=== PATIENT | male | born 1950 | race Caucasian/White ===

== ENCOUNTER 2016-12-29 07:06 | Outpatient (CLI) | payer MEDICARE, BC ==
[2016-12-29] MEDS ORDERED: IOPAMIDOL-300 100 ML VIAL IVP ONE (09:07)
--- NOTE | 2016-12-29 13:07 | CT Report ---
CT ABDOMEN AND PELVIS: 12/29/2016 CLINICAL HISTORY: Left flank pain, hematuria. TECHNIQUE: Axial images were obtained from the domes of the diaphragm through the pubic symphysis following the administration of contrast. 100 cc isovue. In accordance with CT protocol optimization, one or more of the following dose reduction techniques were utilized for this exam: automated exposure control, adjustment of mA and/or KV based on patient size, or use of iterative reconstructive technique. FINDINGS: The visualized lung bases are grossly clear. Small hiatal hernia is noted. The liver, pancreas, spleen, and adrenal glands are unremarkable. The kidneys are symmetric. There is no hydronephrosis nor hydroureter. No renal nor ureteral calculi are confirmed. Specific attention to the left side is normal. There is moderate retained stool in the colon. There are no dilated segments of small nor large bowel. Numerous diverticula are more concentrated in the descending colon/sigmoid distribution. There is no convincing evidence for active diverticulitis. The bladder and distal ureters are grossly normal. Small fat-containing inguinal hernias are symmetric. Atherosclerotic calcifications are incidental in the aorta. Few shotty retroperitoneal lymph nodes are noted with a short axis diameter measuring up to 6 mm. Degenerative changes exist in the lumbar spine; maximal at L5-S1. IMPRESSION: 1. NO OBSTRUCTIVE UROPATHY. NO CT EXPLANATION FOR LEFT FLANK PAIN/HEMATURIA. 2. MODERATE DIVERTICULOSIS IN THE DESCENDING/SIGMOID COLON. NO CHANGES TO SUGGEST DIVERTICULITIS. REFERENCE ADDITIONAL COMMENTS ABOVE. JOB #: [id number] EXT JOB #: [id number] [facility]Ale
== END 2016-12-29 07:07 | disposition home or self-care (01) ==
LOC: DI 07:06
PROVIDERS: ATTEND Family Medicine
DX: R10.9 Unspecified abdominal pain (principal); R31.9 Hematuria, unspecified; K57.30 Diverticulosis of large intestine without perforation or abscess without bleeding
CPT/HCPCS: 74177; Q9967

== ENCOUNTER 2017-11-29 08:59 | Outpatient (CLI) | payer MEDICARE, BC ==
--- NOTE | 2017-11-29 12:30 | XRAY Report ---
Procedure Date: 11/29/2017 Accession Number: [id number] / [id number] Procedure: XRS - Knee 4 View BILAT CPT Code: FULL RESULT: EXAM: Knee 4 View BILAT DATE: 11/29/2017 9:43 AM CLINICAL HISTORY: NEW BILAT KNEE PAIN X 3 MO COMPARISON: None. TECHNIQUE: 3 views each. FINDINGS: RIGHT KNEE: Bones: Normal. No fractures or bone lesions. Joints: Normal. No effusion. No subluxations. Mild tricompartmental osteoarthrosis most pronounced in the medial femorotibial compartment. Soft Tissues: Normal. No soft tissue swelling. LEFT KNEE: Bones: Normal. No fractures or bone lesions. Joints: Normal. No effusion. No subluxations. Mild tricompartmental osteoarthrosis most pronounced in the medial femorotibial compartment. Soft Tissues: Normal. No soft tissue swelling. IMPRESSION: Mild bilateral osteoarthrosis, otherwise normal bilateral knee radiography. [facility]
== END 2017-11-29 09:00 | disposition home or self-care (01) ==
LOC: DI.S 08:59
PROVIDERS: ATTEND Registered Nurse
DX: M17.0 Bilateral primary osteoarthritis of knee (principal)

== ENCOUNTER 2019-04-21 12:55 | Outpatient (CLI) | payer MEDICARE, BC ==
--- NOTE | 2019-04-22 16:35 | XRAY Report ---
Reason: ACUTE BRONCHITIS Procedure Date: 04/21/2019 Accession Number: [id number] / [id number] Procedure: XRS - Chest 2 View X-Ray CPT Code: 67164 Final Report FULL RESULT: EXAM: CHEST RADIOGRAPHY EXAM DATE: 04/21/2019 01:13 PM. CLINICAL HISTORY: ACUTE BRONCHITIS. COMPARISON: 10/12/2013 12:02 PM. TECHNIQUE: 2 views. FINDINGS: Lungs/Pleura: Posterior lower lobe infiltrate, probably on the left. No pleural effusion seen. No pneumothorax. Mediastinum: Heart and mediastinal contours are unremarkable. Other: Pectus excavatum. IMPRESSION: 1. Left lower lobe infiltrate consistent with pneumonia. [facility]
== END 2019-04-21 12:56 | disposition home or self-care (01) ==
LOC: DI.S 12:55
PROVIDERS: ATTEND Nurse Practitioner Family
DX: R91.8 Other nonspecific abnormal finding of lung field (principal)
CPT/HCPCS: 71046

== ENCOUNTER 2019-08-31 13:14 | Outpatient (CLI) | payer MEDICARE, BC ==
--- NOTE | 2019-08-31 14:56 | Ultrasound Report ---
Reason: LEFT LLQ PAIN Procedure Date: 08/31/2019 Accession Number: [id number] / [id number] Procedure: US - Pelvic Limited or F/U CPT Code: Final Report FULL RESULT: EXAM: LIMITED ABDOMINAL/PELVIC ULTRASOUND EXAM DATE: 08/31/2019 02:10 PM. CLINICAL HISTORY: Left lower quadrant pain. COMPARISON: ABDOMEN/PELVIS W/ 12/29/2016 8:03 AM. TECHNIQUE: Real-time scanning was performed of the right lower quadrant with static images obtained. FINDINGS: Sonography performed at the area of concern as indicated by the patient at the left inguinal area. There is a rounded hypoechoic density extending into the left inguinal canal, measuring 3.3 x 1.5 x 2.1 cm. The neck is measured at 0.9 x 0.8 cm. This is located lateral to the inferior epigastric artery. No peristalsis is seen. No motion was seen with Valsalva. IMPRESSION: Findings consistent with nonreducible hernia containing fat versus mass. [facility]
== END 2019-08-31 13:15 | disposition home or self-care (01) ==
LOC: DI 13:14
PROVIDERS: ATTEND Nurse Practitioner Family
DX: R19.04 Left lower quadrant abdominal swelling, mass and lump (principal)
CPT/HCPCS: 76857

== ENCOUNTER 2019-11-07 11:03 | Outpatient (CLI) | payer MEDICARE, BC | END 2019-11-07 11:04 | disposition home or self-care (01) | LOC: LAB 11:03 | PROVIDERS: ATTEND Surgery | DX: Z01.812 Encounter for preprocedural laboratory examination (principal); Z20.828 Contact with and (suspected) exposure to other viral communicable diseases; R59.1 Generalized enlarged lymph nodes | CPT/HCPCS: 81599 ==

== ENCOUNTER 2019-11-10 08:37 | Day surgery (SDC) | payer MEDICARE, BC ==
[2019-11-10] MEDS ORDERED: KETAMINE 500 MG/10 ML VIAL IVP ONE (08:38)
[2019-11-10] MEDS ORDERED: PROPOFOL 200 MG/20 ML VIAL IVP ONE (08:38)
[2019-11-10] MEDS ORDERED: fentaNYL 100 MCG/2 ML VIAL IVP ONE (08:38)
[2019-11-10] MEDS ORDERED: LIDOCAINE-MPF 2% 5 ML VIAL IM ONE (08:38)
[2019-11-10] MEDS ORDERED: LACTATED RINGERS 1,000 ML IV ONE (08:52)
--- NOTE | 2019-11-10 10:08 | ANESTHESIA ---
Pre-Anesthesia VS, & Labs - Diagnosis lymphadenopathy - Procedure lymph node excision left groin Vital Signs: Temp Pulse Resp BP Pulse Ox 36.6 C 64 12 150/76 H 100 11/10/19 08:52 11/10/19 08:52 11/10/19 08:52 11/10/19 08:52 11/10/19 08:52 Height 5 ft 7 in Weight (kg) 63.5 kg - NPO >8 hours - Lab Results Lab results reviewed: Yes Home Medications and Allergies Home Medications: Ambulatory Orders No Known Home Medications 11/02/19 No Known Home Medications 11/02/19 Allergies/Adverse Reactions: Allergies Allergy/AdvReac Type Severity Reaction Status Date / Time No Known Drug Allergies Allergy Verified 11/02/19 14:02 Anes History & Medical History - Anesthetic History Anesthesia Complications: reports: No previous complications Family history of Anesthesia Complications: Denies Family history of Malignant Hyperthermia: Denies - Medical History Cardiovascular: reports: None Pulmonary: reports: None Gastrointestinal: reports: None Urinary: reports: None Musculoskeletal: reports: None Endocrine/Autoimmune: reports: None Skin: reports: None Smoking Status: Never smoker Psychosocial: reports: Alcohol (2-3 drinks/day) - Surgical History General: Colonoscopy Orthopedic: Hip replacement Exam General: Alert, Oriented x3, Cooperative Dental: Dentures full Upper, Dentures full Lower Mouth Opening: Greater than 4 Fingerbreadths Neck Mobility: Normal Mallampati classification: I Thyromental Distance: 4-6 cm Respiratory: Lungs clear Cardiovascular: Regular rate Plan Anesthesia Type: General, MAC Consent for Procedure(s) Verified and Reviewed: Yes Code Status: Attempt Resuscitation ASA classification: 1-Healthy patient Is this case an emergency?: No
[2019-11-10] MEDS ORDERED: LIDOCAINE-MPF 1% 30 ML VIAL ONE (11:08)
[2019-11-10] MEDS: LIDOCAINE 1%-EPI 1:100000 20 ML MDV ONE ×2 (11:53→12:03)
[2019-11-10] MEDS: BUPIVACAINE 0.25% PF 30 ML VIAL ONE ×2 (11:53→12:03)
[2019-11-10] MEDS ORDERED: HYDROcod/ACETAM 5/325 MG TABLET PO PRN (13:01)
[2019-11-10] MEDS ORDERED: HYDROcod/ACETAM 10 MG/325 MG TABLET PO PRN (13:01)
[2019-11-10 13:33] VITALS: BP 120/59
[2019-11-10] MEDS ORDERED: LACTATED RINGERS 1,000 ML IV SCH (14:00)
--- NOTE | 2019-11-10 15:01 | OPERATIVE REPORT ---
DATE OF SERVICE: 11/10/2019 Physician: Wolf Conte MD PREOPERATIVE DIAGNOSIS: Bilateral inguinal lymphadenopathy. POSTOPERATIVE DIAGNOSIS: Bilateral inguinal lymphadenopathy. PROCEDURE: Excisional biopsy, left inguinal node. SURGEON: Carlos Conte MD WRAPPER CASHIER: None. ANESTHESIA: Monitored anesthesia care, IV sedation and local anesthesia. COMPLICATIONS: None. SPECIMEN: Lymph node sent fresh for pathology. ESTIMATED BLOOD LOSS: None. DRAINS: None. INDICATIONS FOR PROCEDURE: Patient is a 77-year-old healthy gentleman who recently noticed a tender left inguinal lymph node. He was followed for a few weeks. He has developed a progressive bilateral inguinal lymphadenopathy, and presents for excisional biopsy. Risks discussed, alternatives discuss ed. All questions answered and consent obtained. DESCRIPTION OF PROCEDURE: Patient was properly identified, brought to the operating room and placed in supine position. Monitored anesthesia care was given. He was prepped and draped in a sterile fas hion. Antibiotics were not given. Local anesthetic with lidocaine and Marcaine was given over the m ost prominent left inguinal lymph node. A 4 cm incision was made in the direction of [place]'s lines. Dissection proceeded with cutting current, followed by sharp dissection down to the lymph node. He had a matted lymph nodes with significant scarring. The most dominant lymph node was carefully daisy brigida with cautery. A single small Hemoclip followed by a 2-0 Vicryl tie. The lymph node was removed and sent fresh for pathology. Hemostasis was assured. Subcutaneous tissue was closed in layers with 2-0 Vicryl, followed by buried interrupted 3-0 Vicryl suture. Skin was closed with a running 4-0 Mo nocryl subcuticular suture. Steri-Strips and dressing were applied. He tolerated the procedure well . TD: 11/10/2019 13:14
== END 2019-11-10 08:38 | disposition home or self-care (01) ==
LOC: SDS 08:37
PROVIDERS: ATTEND Surgery
PROC: 07BJ0ZX Excision of Left Inguinal Lymphatic, Open Approach, Diagnostic (ICD-10-PCS; principal; 2019-11-10 10:15)
DX: C83.35 Diffuse large B-cell lymphoma, lymph nodes of inguinal region and lower limb (principal)
CPT/HCPCS: 38531; 88307; 88333; 88341; 88342; 88360; J7120

== ENCOUNTER 2019-12-28 13:09 | Outpatient (CLI) | payer MEDICARE, BC | END 2019-12-28 13:10 | disposition home or self-care (01) | LOC: DI 13:09 | PROVIDERS: ATTEND Internal Medicine Hematology & Oncology | DX: C85.90 Non-Hodgkin lymphoma, unspecified, unspecified site (principal) | CPT/HCPCS: 93306 ==

== ENCOUNTER 2019-12-29 15:13 | Outpatient (CLI) | payer MEDICARE, BC | END 2019-12-29 15:14 | disposition home or self-care (01) | LOC: COV 15:13 | PROVIDERS: ATTEND Surgery | DX: Z01.818 Encounter for other preprocedural examination (principal); C85.90 Non-Hodgkin lymphoma, unspecified, unspecified site; Z20.828 Contact with and (suspected) exposure to other viral communicable diseases ==

== ENCOUNTER 2021-04-24 07:49 | Outpatient (CLI) | payer MEDICARE, BC ==
--- NOTE | 2021-04-25 11:30 | Mammography Report ---
MALE BILATERAL DIGITAL DIAGNOSTIC MAMMOGRAM 3D/2D: 04/24/2021 CLINICAL: Diffuse left breast pain. No prior exams were available for comparison. There is scattered left breast fibroglandular tissue consistent with asymmetric gynecomastia that cor relates with diffuse swelling and reported pain. No significant masses, calcifications, or other findings are seen in either breast. IMPRESSION: BENIGN There is no mammographic evidence of malignancy. Asymmetric left breast gynecomastia is present and may be symptomatic. Clinical evaluation and discussion with primary care doctor to determine etiology is recommended. Findings and recommendations were conveyed to the patient at time of exam. This exam was interpreted at Station ID: [id number]. NOTE: For mammograms, a report in lay terms will be sent to the patient. Approximately 15% of breast malignancies will not be visualized mammographically. In the management of a palpable breast mass, a negative mammogram must not discourage biopsy of a clinically suspicious lesion. Electronically Signed By: Julisa virk/:04/24/2021 09:07:09 ACR BI-RADS Category 2: Benign Finding(s) 3342F PARENCHYMAL PATTERN: (A) - The breast(s) demonstrate(s) scattered fibroglandular densities. BI-RADS CATEGORY: (2) - 2 Unspecified - other recall n/a LATERALITY: (B)
== END 2021-04-24 07:50 | disposition home or self-care (01) ==
LOC: DI 07:49
PROVIDERS: ATTEND Internal Medicine Hematology & Oncology
DX: N64.4 Mastodynia (principal); N62 Hypertrophy of breast